=== PATIENT | female | born 1975 | race Caucasian/White ===

== ENCOUNTER 2025-04-23 19:50 | Emergency (ER) | payer SELFPAY ==
[~2025-04-23] VITALS: Ht 154.9 cm; Wt 126.3 kg
[2025-04-23] MEDS: EPINEPHrine HCL 0.5 ML NEB NEB ONE (20:10)
[2025-04-23] MEDS: EPINEPHrine HCL 0.5 ML NEB ONE (20:11)
[2025-04-23] MEDS: EPINEPHrine HCL 1 MG/1 ML AMP IM ONE (20:14)
[2025-04-23] MEDS: diphenhdrAMINE HCL 50 MG/1 ML VL IV ONE (20:14)
[2025-04-23] MEDS: DexAMETHasone SOD PHOS 10MG/1ML VIAL INJ IV ONE (20:14)
[2025-04-23] MEDS: FAMOTIDINE (10MG/ML) 2ML VL IV ONE (20:14)
--- NOTE | 2025-04-23 20:15 | ED.PDOC ---
HPI Allergic reaction HPI Comments 50 year old female came to ER for allergic reaction. About 45 minutes ago, patient was eating a sandwich, when she developed generalized and pruritus, followed by facial swelling, throat pain and swelling, and shortness of breath. This prompted patient to go immediately to the emergency room. Patient is saturating 97% on room air upon arrival Chief Complaint: Allergic Reaction Time Seen by MD: 20:14 Primary Care Provider: TEE Cadena Notes: Nurses Notes Allergies: Coded Allergies: Amoxicillin (Verified Allergy, Unknown, 04/23/25) Home Meds Active Scripts Prednisone (Prednisone) 20 Mg Tab, 20 MG PO BID for 5 Days, #10 TAB Prov:ALANIS GROVES MD 04/23/25 Diphenhydramine Hcl (Benadryl Allergy) 25 Mg Cap, 1 CAP PO Q4HP PRN, #30 CAP 1 Refill Prov:ALANIS GROVES MD 04/23/25 Information Source: Patient Mode of Arrival: Ambulatory Severity: Moderate Rash: Moderate SOB: Moderate Difficulty swallowing: Moderate Pruritus: Moderate Timing: Minutes Duration: Since onset Location: Generalized, Throat Exposed to: Food Developed: Difficult Swallowing, Facial Swelling, Generalized erythema, Pruritus, Rash, Shortness of Breath, Throat Swelliing History of: Prior Similar Episodes Past Medical History PAST MEDICAL HISTORY: HTN Surgical History: Cholecystectomy, [employer]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 Family History Family History: Unknown Social History Smoker: Cigarettes, Less Than 1 Pack/Day Alcohol: Denies ETOH Use Drugs: Denies Drug Use Lives In: Home Constitutional: denies: chills, diaphoresis, fatigue, fever, malaise, sweats, weakness, others EENTM: reports: throat pain, throat swelling; denies: blurred vision, double vision, ear bleeding, ear discharge, ear drainage, ear pain, ear ringing, eye pain, eye redness, hearing loss, mouth pain, mouth swelling, nasal discharge, nose bleeding, nose congestion, nose pain, photophobia, tearing, voice changes, others Respiratory: reports: SOB at rest, shortness of breath; denies: cough, hemoptysis, orthopnea, SOB with excertion, stridor, wheezing, others Cardiovascular: denies: chest pain, dizzy spells, diaphoresis, Dyspnea on exertion, edema, irregular heart beat, left arm pain, lightheadedness, palpitations, PND, syncope, others Gastrointestinal: denies: abdomen distended, abdominal pain, blood streaked bowels, constipated, diarrhea, dysphagia, difficulty swallowing, hematemesis, melena, nausea, poor appetite, poor fluid intake, rectal bleeding, rectal pain, vomiting, others Genitourinary: denies: abnormal vagina bleeding, burning, dyspareunia, dysuria, flank pain, frequency, hematuria, incontinence, pain, , vagina discharge, urgency, others Neurological: denies: dizziness, fainting, headache, left sided numbness, left sided weakness, numbness, paresthesia, pre-existing deficit, right sided numbness, right sided weakness, seizure, speech problems, tingling, tremors, weakness, others Musculoskeletal: denies: back pain, gout, joint pain, joint swelling, muscle pain, muscle stiffness, neck pain, others Integumetry: denies: bruises, change in color, change in hair/nails, dryness, laceration, lesions, lumps, rash, wounds, others Allergic/Immunocompromised: reports: Hives, Itching; denies: Difficulty Healing, Frequent Infections, others Hematologic/Lymphatic: denies: anemia, blood clots, easy bleeding, easy bruising, swollen glands, others Endocrine: denies: excessive hunger, excessive sweating, excessive thirst, excessive urination, flushing, intolerance to cold, intolerance to heat, unexplained weight gain, unexplained weight loss, others Psychiatric: denies: anxiety, bipolar disorder, depression, hopeless, panic disorder, schizophrenia, sleepless, suicidal, others Physical Exam General Appearance: Moderate Distress, Normal HEENT: Normal ENT Inspection, Pharynx Normal, TMs Normal Neck: Full Range of Motion, Non-Tender, Normal, Normal Inspection Respiratory: Chest Non-Tender, Lungs Clear, No Accessory Muscle Use, No Respiratory Distress, Normal Breath Sounds Cardiovascular: No Edema, No JVD, No Murmur, No Gallop, Normal Peripheral Pulses, Regular Rate/Rhythm Breast Exam: Deferred Gastrointestinal: No Organomegaly, Non Tender, No Pulsatile Mass, Normal Bowel Sounds, Soft Genitalia: Deferred Pelvic: Deferred Rectal: Deferred Extremities: No calf tenderness, Normal capillary refill, Normal inspection, Normal range of motion, Non-tender, No pedal edema Musculoskeletal : Apperance: Normal Neurologic: Alert, consulting sales manager II-XII nml as Tested, No Motor Deficits, Normal Affect, Normal Mood, No Sensory Deficits Cerebellar Function: Normal Reflexes: Normal Skin: Dry, Rash, Warm Lymphatic: No Adenopathy Was a procedure done? Was a procedure done?: No Differential diagnosis (all) Differential Diagnosis: Anaphylaxis, Bronchospasm, Urticaria X-Ray, Labs, Meds, VS Vital Signs Date Time Temp Pulse Resp B/P (MAP) Pulse Ox O2 Delivery O2 Flow Rate FiO2 04/23/25 22:30 Room Air* 0 21 04/23/25 22:20 98.0 81 18 111/68 (82) 100 98.0 04/23/25 20:11 22 98 Room Air* 0 21 04/23/25 19:54 26 100 Room Air* 0 21 04/23/25 19:54 98.2 93 26 103/70 (81) 100 98.2 Lab Test 04/23/25 19:57 Range/Units POC Glucose 115 H 70-106 mg/dl Current Medications Medications (Trade) Dose Ordered Sig/Hattie Route Start Time Stop Time Status Last Admin Epinephrine HCl 0.3 mg ONCE ONCE IM 04/23/25 20:00 04/23/25 20:01 DC 04/23/25 20:14 Diphenhydramine HCl (Benadryl Injection) 50 mg ONCE ONCE IV 04/23/25 20:00 04/23/25 20:01 DC 04/23/25 20:14 Famotidine (Pepcid Injection) 20 mg ONCE ONCE IV 04/23/25 20:00 04/23/25 20:01 DC 04/23/25 20:14 Dexamethasone Sodium Phosphate (Decadron Injection) 10 mg ONCE ONCE IV 04/23/25 20:00 04/23/25 20:01 DC 04/23/25 20:14 Epinephrine HCl (Racenephrine) 0.5 ml ONCE ONCE NEB 04/23/25 20:15 04/23/25 20:16 DC 04/23/25 20:10 Time of 1ST Reevaluation: 20:10 Reevaluation 1ST: Unchanged Patient Education/Counseling: Diagnosis, Treatment Family Education/Counseling: No Family Present Departure 1 Departure Time of Disposition: 22:00 Impression: Primary Impression: Allergic reaction to food Disposition: 01 HOME / SELF CARE / HOMELESS Condition: Stable e-Prescriptions Prednisone (Prednisone) 20 Mg Tab 20 MG PO BID for 5 Days, #10 TAB Prov: ALANIS GROVES MD 04/23/25 Diphenhydramine Hcl (Benadryl Allergy) 25 Mg Cap 1 CAP PO Q4HP PRN, #30 CAP 1 Refill Prov: ALANIS GROVES MD 04/23/25 Discharged With: Self Critical Care Note Critical Care Time?: Yes (35 min-critical care time only) Critical care comment: Severe allergy Stability Stability form required: No Heart Score Heart Score: Heart Score Response (Comments) Value History N/A 0 EKG N/A 0 Age N/A 0 Risk Factors N/A 0 Troponin N/A 0 Total 0 I personally scribed for ALANIS GROVES MD ([email or web address]) on 04/23/25 at 20:14. Electronically submitted by Christian Dumont ([email or web address]). ALANIS GROVES MD Apr 23, 2025 20:14
[2025-04-23] MEDS ORDERED: PRED20TA2 PO (22:09)
[2025-04-23] MEDS ORDERED: DIPH25CA66 PO (22:09)
[2025-04-23 22:20] VITALS: BP 111/68; PULSE 81; RESP 18; TEMP 98; O2SAT 100
== END 2025-04-23 22:56 | disposition home or self-care (01) ==
LOC: ER 19:53
DX: T78.1XXA Other adverse food reactions, not elsewhere classified, initial encounter (principal); X58.XXXA Exposure to other specified factors, initial encounter; I10 Essential (primary) hypertension; F17.210 Nicotine dependence, cigarettes, uncomplicated; Z88.0 Allergy status to penicillin; Z90.49 Acquired absence of other specified parts of digestive tract; Z79.899 Other long term (current) drug therapy
CPT/HCPCS: 82947; 94640; 96372; 96374; 96375; 99284; J0171; J1100; J1200; J3490; 82962